=== PATIENT | female | born 1965 | race Caucasian/White ===

== ENCOUNTER 2017-06-25 17:15 | Emergency (ER) | payer OTHER ==
[~2017-06-25] VITALS: Ht 162.6 cm; Wt 90.0 kg
[~2017-06-25 17:15] MED LIST: ALLEGRA180 MG PO; DOXYCYCL HYC100 MG PO
[2017-06-25] MEDS ORDERED: NAPROSYN500 MG PO (19:51)
[2017-06-25 20:10] VITALS: BP 138/88
== END 2017-06-25 20:10 | disposition home or self-care (01) | DRG 605 ==
LOC: ED 17:15
DX: S00.93XA Contusion of unspecified part of head, initial encounter (principal); S70.02XA Contusion of left hip, initial encounter; S80.02XA Contusion of left knee, initial encounter; V03.10XA Pedestrian on foot injured in collision with car, pick-up truck or van in traffic accident, initial encounter